=== PATIENT | female | born 2000 | race Caucasian/White ===

== ENCOUNTER 2023-01-20 08:35 | Inpatient (IN) | payer OTHER, SELFPAY ==
[2023-01-20] VITALS (57 sets, daily range): BP systolic 93–136; BP diastolic 52–85; PULSE 65–90; RESP 16–18; TEMP 36.3–37.8; O2SAT 78–100; BMI 26.8
--- NOTE | 2023-01-20 08:45 | PCM.HP.OB ---
HPI - General General Date of Admission: 01/20/23 HPI Narrative ELIER WU, is a 22 F @ 40.1 weeks who presents c/o ctx. 4cm on admission was 1cm in office last week. PFSH PFSH Home Medications 1 tab PO.IVFORM DAILY Check with primary doctor 01/20/23 [History Last Taken 01/19/23 09:00] aspirin 81 mg tablet 81 mg PO DAILY Check with primary doctor 01/20/23 [History Last Taken 01/19/23 09:00] Allergy/AdvReac Type Severity Reaction Status Date / Time No Known Allergies Allergy Verified 01/20/23 08:29 Vital Signs Vital Signs Vital Signs: 01/20/23 08:21 01/20/23 08:21 01/20/23 08:22 Temperature Temperature Source Temporal Pulse Rate 71 Blood Pressure 127/73 H BP Systolic 127 BP Diastolic 73 01/20/23 08:22 Temperature 98.7 F Temperature Source Pulse Rate Blood Pressure BP Systolic BP Diastolic Weight Weight: 75.296 kg Body Mass Index (BMI) 26.8 Physical Exam Narrative AROM performed- clear fluid Labs Labs Labs: No Data to Display Assessment & Plan (1) 40 weeks gestation of : (2) Post term over 40 weeks: (3) Active labor at term: PLAN: Plan Admit to L&D [facility] FHR/TOCO Epidural if requested for pain Monitor VS Anticipate arom performed- augment with pitocin if indicated
[2023-01-20] MEDS: Lactated Ringers 1,000 ML 50 ML IV (08:50)
[2023-01-20 09:06] LABS: Absolute Lymphocyte Count 1.15 X10^3/uL (0.83-4.51); Absolute Neutrophil Count 10.7 X10^3/uL (2.0-7.7); Basophil# 0.02 X10^3/uL; Basophil% 0.2 % (0-1); Eosinophil# 0.01 X10^3/uL; Eosinophils% 0.1 % (0-5); Hematocrit 41.9 % (37-47); Hemoglobin 14.5 g/dL (12.0-15.0); Lymphocyte # 1.15 X10^3/ul (0.83-4.51); Lymphocyte % 9.3 % (19-41); Mean Corp Hgb Conc 34.6 g/dL (32-36); Mean Corpuscular Hgb 31.3 pg (27.0-32.0); Mean Corpuscular Volume 90.5 fL (81-99); Mean Platelet Vol. 9.4 fl (6.2-12.0); Monocyte# 0.47 X10^3/uL; Monocyte% 3.8 % (0-10); NRBC Flagged by Analyzer 0 % (0-5); Neutrophil # 10.71 X10^3/uL (2.7-7.7); Platelet Count 180 K/mm3 (150-450); RBC Distribution Width CV 12.9 % (11.6-14.6); RBC Distribution Width SD 42.1 fl (35.1-43.9); Red Blood Count 4.63 M/mm3 (4.2-5.4); White Blood Count 12.4 K/mm3 (4.4-11.0)
[2023-01-20] MEDS: LACTATED RINGERS 500 ML 999 ML IV ×2 (09:07→14:13)
[2023-01-20 09:37] LABS: Syphilis Antibodies Non-reactive
[2023-01-20] MEDS: fentaNYL-bupivacaine (epidural) 100 ML BAG EPIDURAL ×3 (09:52→19:21)
[2023-01-20] MEDS: Lactated Ringers 1,000 ML 200 ML IV ×2 (14:13→20:25)
[2023-01-20] MEDS: Ondansetron 4 MG/2 ML Vial IV (20:40)
--- NOTE | 2023-01-20 20:59 | PCM.PROGNOTE ---
Subjective Subjective Patient seen at bedside vaginal exam performed she was still 9.5cm more cervix on the patient's right side. Discussed with the patient that there is another obstetrical emergency happening on the unit right now that I need to attend to. Patient and fetus are stable at this time and we will proceed with a primary section for arrest of dilation as soon as I am done performing the other section. Patient and her significant other are comfortable with this plan. heart rate is category 1 reactive at this time. Objective Data Objective Data Vital Signs: Vital Signs Temp Pulse Resp BP Pulse Ox O2 Del Method 99 F 86 18 122/69 H 100 Room Air 01/20/23 20:00 01/20/23 20:01 01/20/23 20:00 01/20/23 20:00 01/20/23 20:01 01/20/23 20:00 Oxygen Delivery Method Room Air Weight: 75.296 kg Body Mass Index (BMI) 26.8 Intake & Output: Intake and Output for Last 24 Hours 01/18/23 01/19/23 01/20/23 23:59 23:59 23:59 Intake Total 2915.83 / 2915.83 Output Total 900 / 900 Balance / Lab / Micro Data Result Diagrams: 01/20/23 08:50 Labs: Laboratory Results - last 24 hr 01/20/23 08:50: WBC 12.4 H, RBC 4.63, Hgb 14.5, Hct 41.9, MCV 90.5, MCH 31.3, MCHC 34.6, RDW Std Deviation 42.1, RDW Coeff of Herminio 12.9, Plt Count 180, MPV 9.4, Immature Gran % (Auto) 0.600, Neut % (Auto) 86.0 H, Lymph % (Auto) 9.3 L, Bland % (Auto) 3.8, Eos % (Auto) 0.1, Baso % (Auto) 0.2, Absolute Neuts (auto) 10.7 H, Absolute Lymphs (auto) 1.15, Nucleated RBC % 0 01/20/23 08:50: Blood Type A POSITIVE, Antibody Screen NEGATIVE 01/20/23 08:50: Syphilis Total Ab Non-reactive
[2023-01-20] MEDS: Sodium Citrate/Citric Acid 30 ML UDC PO (22:01)
[2023-01-20] MEDS: Acetaminophen 500 MG Tablet 1000 MG PO (22:01)
--- NOTE | 2023-01-20 22:06 | EX.PCM.OBRPT ---
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 She was then placed in the supine position. She was prepped and draped in the normal sterile fashion. Epidural Anesthesia was found to be adequate. At this time a Pfannenstiel skin incision was made with a knife was carried down to the underlying layer of the fascia. The fascial incision was then extended laterally using gentle opposing traction. Attention was then turned to the superior aspect of the fascial edge was grasped with 2 straight Sheridan clamps tented up and the rectus muscle dissected off bluntly. Attention was then turned to the inferior aspect where again Sheridan clamps were placed in the rectus muscles were tented up and the fascia was dissected off bluntly. Rectus muscles were then in the midline bluntly and peritoneum was entered bluntly. Gentle opposing traction was placed. At this time the vesicouterine peritoneum was identified. Scalpel was used to make a uterine incision in a low transverse fashion. The uterus was then entered bluntly gentle opposing traction was placed to extend this incision. amniotic fluid with meconium noted. 's head was brought to the uterine incision was delivered atraumatically. Cord was clamped and cut infant was handed to the waiting nursery team. The Placenta was removed from the uterus. The uterus was then removed from the abdominal cavity. The uterus was cleared of all clots and debris using a lap. At this time the uterine incision was reapproximated using #1 Vicryl in a running locked fashion. bleeding from extension on left angle- multiple sutures placed- and Hemostasis was appreciated. Posterior cul-de-sac was then cleared of all clots and debris. Uterus was placed back in the abdominal cavity. Gutters were cleared of all clots and debris. Uterine incision was reevaluated and noted to be of excellent hemostasis. tubes and ovaries appeared normal. At this time the peritoneum was grasped with Kellys reapproximated using #2 Vicryl suture in a running fashion. Fascia was then reapproximated using #1 Vicryl in a running fashion. Subcu layer was reapproximated with #2 0 plain gut suture in an interrupted fashion. Subcu layer was closed using 4-0 vicryl in a subcu fashion. Dry sterile dressing was applied. Instrument lap needle count correct ?2. Anticipated normal postoperative course. Presentation: Positive for Vertex Amniotic Membrane Rupture Type: Artificial Amniotic Fluid Description: Clear Placental Delivery Description: Expressed Placenta Disposition: [facility] Cord Vessel Description: 3 Vessels Cord Entanglement: None Infant A Gender: Female (1 minute): 8 (5 minute): 9 Delayed Cord Clamping: No Complications Risks of Surgery Discussed w/Patient: Anesthesia Risks, Infection and Injury to surrounding structure(s) including bowel and bladder
[2023-01-20] MEDS: Cefazolin 2 GM in 0.9% Normal Saline 100 ML IV (22:18)
[2023-01-20] MEDS: Oxytocin 15 Units/NS 250ml 15 UNITS/250 ML IV.SOLN 83 UNITS IV (23:30)
[2023-01-21] VITALS (17 sets, daily range): BP systolic 95–120; BP diastolic 32–88; PULSE 18–89; RESP 12–18; TEMP 36.8–37; O2SAT 95–100
[2023-01-21] MEDS: Ketorolac 30 MG/ML Syringe IV ×4 (00:23→18:31)
[2023-01-21] MEDS: 0.9% Saline Lock 10 ML Syringe IV ×4 (00:24→18:31)
[2023-01-21] MEDS: Lactated Ringers 1,000 ML 100 ML IV (02:52)
[2023-01-21] MEDS: Acetaminophen 500 MG Tablet 1000 MG PO ×4 (03:40→22:27)
--- NOTE | 2023-01-21 04:40 | NURSING ---
Epidural cath removed by this RN. Blue tip intact.
[2023-01-21 04:42] LABS: Hematocrit 34.3 % (37-47); Hemoglobin 11.6 g/dL (12.0-15.0); Mean Corp Hgb Conc 33.8 g/dL (32-36); Mean Corpuscular Volume 91.7 fL (81-99); Mean Platelet Vol. 9.2 fl (6.2-12.0); Platelet Count 154 K/mm3 (150-450); RBC Distribution Width CV 12.9 % (11.6-14.6); RBC Distribution Width SD 42.6 fl (35.1-43.9); Red Blood Count 3.74 M/mm3 (4.2-5.4)
--- NOTE | 2023-01-21 05:05 | NURSING ---
report received from kaycee FREGOSO. this RN assumed care of pt at 0500
--- NOTE | 2023-01-21 08:29 | PCM.PN.OB ---
Subjective Subjective Patient seen at bedside. Feeling well. Pain is controlled. Patient has not ambulated since surgery. Passing flatus. Denies any CP, SOB or dizziness. with support. Objective Data Objective Data Vital Signs: Vital Signs Temp Pulse Resp BP Pulse Ox O2 Del Method 98.2 F 83 17 107/47 L 100 Room Air 01/21/23 05:48 01/21/23 05:48 01/21/23 05:52 01/21/23 05:48 01/21/23 05:52 01/21/23 05:52 Oxygen Delivery Method Room Air Weight: 166 lb Body Mass Index (BMI) 26.8 Intake & Output: Intake and Output for Last 24 Hours 01/19/23 01/20/23 01/21/23 23:59 23:59 23:59 Intake Total 3289.16 / 3289.16 615 / 615 Output Total 1700 / 1700 900 / 900 Balance 1589.16 / 1589.16 -285 / -285 Lab / Micro Data Result Diagrams: 01/21/23 04:30 Labs: Laboratory Results - last 24 hr 01/20/23 08:50: WBC 12.4 H, RBC 4.63, Hgb 14.5, Hct 41.9, MCV 90.5, MCH 31.3, MCHC 34.6, RDW Std Deviation 42.1, RDW Coeff of Herminio 12.9, Plt Count 180, MPV 9.4, Immature Gran % (Auto) 0.600, Neut % (Auto) 86.0 H, Lymph % (Auto) 9.3 L, [place] % (Auto) 3.8, Eos % (Auto) 0.1, Baso % (Auto) 0.2, Absolute Neuts (auto) 10.7 H, Absolute Lymphs (auto) 1.15, Nucleated RBC % 0 01/20/23 08:50: Blood Type A POSITIVE, Antibody Screen NEGATIVE 01/20/23 08:50: Syphilis Total Ab Non-reactive 01/21/23 04:30: WBC 14.0 H, RBC 3.74 L, Hgb 11.6 L, Hct 34.3 L, MCV 91.7, MCH 31.0, MCHC 33.8, RDW Std Deviation 42.6, RDW Coeff of Herminio 12.9, Plt Count 154, MPV 9.2 ROS Eyes Eyes: Denies blurry vision, change in vision or spots in vision ENT HEENT: Denies dizziness or headache(s) Cardiovascular Cardiovascular: Denies abdominal pain, chest pain or dyspnea Respiratory/Chest Respiratory/Chest: Denies cough, dyspnea, shortness of breath at rest or shortness of breath with exertion Gastrointestinal Gastrointestinal: Denies abdominal pain, diarrhea or vomiting Genitourinary Genitourinary: Denies change in urinary stream, difficulty urinating or dysuria Musculoskeletal Musculoskeletal: Reports none Integumentary Integumentary: Denies rash Neurologic Neurologic: Denies dizziness, headache(s), memory loss or weakness Assessment & Plan (1) Status post primary low transverse section: (2) Care and examination of lactating mother: PLAN: Plan POD 1 Primary C/S - failure to descend Pain control support Increase ambulation D/C nayak catheter Anticipate D/C tomorrow
[2023-01-21] MEDS: Senna/Docusate Sodium 1 Tablet PO (10:13)
[2023-01-22] MEDS: Ibuprofen 600 MG Tablet PO ×3 (01:28→13:27)
[2023-01-22 01:30] VITALS: BP 111/63; PULSE 84; RESP 16; TEMP 36.1; O2SAT 95
[2023-01-22] MEDS: Acetaminophen 500 MG Tablet 1000 MG PO ×2 (03:55→10:28)
--- NOTE | 2023-01-22 06:55 | PCM.DC.SUM ---
Providers Date of Admission: 01/20/23 Reason For Visit: C SECTION Diagnosis Discharge Diagnosis (1) Status post primary low transverse section: Status: Acute Code(s): Z98.891 - History of uterine scar from previous surgery (2) Care and examination of lactating mother: Status: Acute Code(s): Z39.1 - Encounter for care and examination of lactating mother Plan POD 2 Primary C/S - failure to descend Pain control support Increase ambulation D/C home with follow up in office Medications at Discharge Home Medications 1 tab PO.IVFORM DAILY Check with primary doctor 01/20/23 acetaminophen 500 mg tablet 1,000 mg PO Q6H #0 tabs 01/22/23 ibuprofen 600 mg tablet 600 mg PO Q6H #0 tabs 01/22/23 sennosides 8.6 mg-docusate sodium 50 mg tablet (Stool Softener-Stimulant Laxative) 1 - 2 tab PO DAILY #0 tabs 01/22/23 Hospital Course Operations section Summary of Care Provided Hospital Course: Patient had primary section. Hosptial course was uneventful. Physical Exam Narrative Dressing is dry and intact Const alert and no apparent distress General Appearance: cooperative and comfortable Exam Limitations: no limitations HEENT normocephalic Eyes General Eye: normal appearance of both eyes Neck full ROM General: normal visual inspection Chest Chest: symmetrical chest wall rise Resp normal respiratory effort and normal air movement Effort and Inspection: symmetric chest movement Auscultation: clear to auscultation bilaterally Cardio regular rate and regular rhythm GI normal to inspection, nondistended, normoactive bowel sounds Back/Spine normal ROM Extremity full ROM and no calf tenderness General Extremity: normal exam except as noted Skin no rashes or lesions noted Neuro CN's II-XII intact bilaterally Psych mental status grossly normal Weight / BMI Weight Weight: 166 lb Body Mass Index (BMI) 26.8 ABG / Lab / Microbiology Data Result Diagrams: 01/21/23 04:30 D/C Instructions Discharge Diet: No restrictions Discharge Activity: May Drive (2 weeks) and May Shower May resume sexual activity in: 6-8 weeks Weight Bearing Status: Weight bearing as tolerated Call your doctor if your incision/area has: Continuous Slow Oozing, Sudden Increased Bleeding, Increased Pain/ Swelling, Increased Redness, Foul Smelling Discharge and Swelling at the incision site Call your doctor if you observe: Fever of 101 or Higher, Numbness or Tingling, Using more than 1 pad per hour, Shortness of breath, Dizziness, Swelling in the ankles, Chest pain, Calf discomfort and Uncontrolled pain Suture Line Care: Avoid Pulling/Pushing Change Dressing in: leave in place till F/U Remove Dressing in: leave until fall off Please Follow Up With: Nanda Taylor CNM When: 1 week for incision check Meaningful Use Info Meaningful Use Diagnoses (Choose all that apply): None applicable Discharge Plan Admission Admit Date/Time: 01/20/23 08:35 Primary Reason for Your Visit: Labor and Delivery Attending Provider: Megan Lemus Discharge Orders/Prescriptions Prescriptions: New acetaminophen 500 mg Tablet 1,000 mg PO Q6H Qty: 0 0RF sennosides-docusate sodium [Stool Softener-Stimulant Laxat] 8.6-50 mg Tablet 1 - 2 tab PO DAILY Qty: 0 0RF ibuprofen 600 mg Tablet 600 mg PO Q6H Qty: 0 0RF Continued 1 tab PO.IVFORM DAILY Discontinued aspirin 81 mg Tablet 81 mg PO DAILY Disposition Disposition (needs filled in before D/C Order can be placed): Home, Self Care
[2023-01-22 08:37] VITALS: BP 105/63; PULSE 69; RESP 18; TEMP 36.8; O2SAT 99
[2023-01-22] MEDS: Senna/Docusate Sodium 1 Tablet PO (10:27)
[2023-01-22 13:00] VITALS: BP 108/66; PULSE 82; RESP 18; TEMP 36.1
== END 2023-01-22 16:10 | disposition home or self-care (01) | DRG 788 ==
LOC: WPOUT 08:40 → WP 08:40
PROVIDERS: Admitting Provider Obstetrics & Gynecology; Referring Provider Obstetrics & Gynecology; Visit Provider Obstetrics & Gynecology
DX: O48.0 Post-term pregnancy (principal); O62.1 Secondary uterine inertia; O77.0 Labor and delivery complicated by meconium in amniotic fluid; Z3A.40 40 weeks gestation of pregnancy; Z37.0 Single live birth; Z79.82 Long term (current) use of aspirin
CPT/HCPCS: 59025; 59050; 85025; 85027; 86780; 86850; 86900; 86901; 94668; 99221; J7120; A4216; G0378; J2405

== ENCOUNTER 2025-01-07 09:28 | Inpatient (IN) | payer BC, SELFPAY ==
[2025-01-07] VITALS (16 sets, daily range): BP systolic 105–119; BP diastolic 43–76; PULSE 67–89; RESP 14–23; TEMP 36–36.7; O2SAT 74–100; BMI 27.0
[2025-01-07] MEDS: Lactated Ringers 1,000 ML 999 ML IV (09:50)
[2025-01-07] MEDS: Acetaminophen 500 MG Tablet 1000 MG PO ×3 (10:02→22:00)
[2025-01-07 10:05] LABS: Absolute Lymphocyte Count 1.19 X10^3/uL (0.83-4.51); Absolute Neutrophil Count 7.8 X10^3/uL (2.0-7.7); Basophil# 0.02 X10^3/uL; Basophil% 0.2 % (0-1); Eosinophil# 0.04 X10^3/uL; Eosinophils% 0.4 % (0-5); Hematocrit 34.7 % (37-47); Hemoglobin 11.6 g/dL (12.0-15.0); Lymphocyte # 1.19 X10^3/ul (0.83-4.51); Lymphocyte % 12.4 % (19-41); Mean Corp Hgb Conc 33.4 g/dL (32-36); Mean Corpuscular Hgb 29.1 pg (27.0-32.0); Mean Corpuscular Volume 87.2 fL (81-99); Mean Platelet Vol. 9.6 fl (6.2-12.0); Monocyte# 0.51 X10^3/uL; Monocyte% 5.3 % (0-10); NRBC Flagged by Analyzer 0 % (0-5); Neutrophil # 7.81 X10^3/uL (2.7-7.7); Neutrophil % 81.4 % (47-70); Platelet Count 178 K/mm3 (150-450); RBC Distribution Width CV 13.4 % (11.6-14.6); RBC Distribution Width SD 42.5 fl (35.1-43.9); Red Blood Count 3.98 M/mm3 (4.2-5.4); White Blood Count 9.6 K/mm3 (4.4-11.0)
[2025-01-07] MEDS: Lactated Ringers 1,000 ML 150 ML IV (10:52)
[2025-01-07 10:58] LABS: Syphilis Antibodies Nonreactive (Nonreactive)
[2025-01-07] MEDS: Sodium Citrate/Citric Acid 30 ML UDC PO (12:09)
[2025-01-07] MEDS: Cefazolin 2 GM in Syringe IV (12:15)
--- NOTE | 2025-01-07 13:06 | PCM.HP.OB ---
HPI - General General Date of Admission: 01/07/25 Date of Service: 01/07/25 Chief Complaint: Repeat HPI Narrative ELIER WU, is a 24 F who presents repeat at term Maternal Data Information Final COOKIE: 01/14/25 Gestational age: 39 PFSH PFSH Medical History (Updated 01/07/25 @ 22:[address] Pao Lake MD) Care and examination of lactating mother Home Medications ?Medication ?Instructions ?Recorded ?Last Taken ?Type 1 tab PO.IVFORM DAILY Check with 01/20/23 01/05/25 09:00 History primary doctor 1 tab Allergy/AdvReac Type Severity Reaction Status Date / Time No Known Allergies Allergy Verified 01/07/25 09:31 Surgical History (Updated 01/07/25 @ 22:[address] Pao Lake MD) Previous section Status post primary low transverse section History of surgery Social History Smoking Status: Never smoker History 2 Elective abortions Hx Para 1 Spontaneous abortions Hx # Term Pregnancies Ectopic pregnancies Hx # Pregnancies Multiple births # of living children ROS Constitutional Constitutional: Denies fatigue, fever(s) or malaise Eyes Eyes: Denies change in vision ENT HEENT: Denies dizziness or headache(s) Cardiovascular Cardiovascular: Denies chest pain, dyspnea or lightheadedness Respiratory/Chest Respiratory/Chest: Denies cough or dyspnea Gastrointestinal Gastrointestinal: Denies change in bowel habits Genitourinary Genitourinary: Denies burning urination or genital lesions Integumentary Integumentary: Denies rash Neurologic Neurologic: Denies confusion, dizziness, headache(s), numbness or weakness Vital Signs Vital Signs Vital Signs: 01/07/25 10:12 Temperature 97.1 F L Temperature Source Temporal Pulse Rate 74 Respiratory Rate 18 Blood Pressure 119/76 Blood Pressure Mean 90 Blood Pressure Source Monitor Blood Pressure Position Semi-Fowlers Blood Pressure Location Left Arm Pulse Ox 100 Oxygen Delivery Method Room Air Weight Weight: 75.9 kg Body Mass Index (BMI) 27.0 Physical Exam Const alert and no apparent distress General Appearance: cooperative HEENT normocephalic Resp normal respiratory effort Cardio regular rate GI soft to palpation GI Narrative: gravid, nontender, appropriate for gestational age Extremity no calf tenderness General Extremity: edema Skin no wounds Rashes: No rashes noted Psych activity/motor behavior normal Labs Labs Labs: Blood Type A POSITIVE Antibody Screen NEGATIVE Hct 34.7 % (37-47) L Hgb 11.6 g/dL (12.0-15.0) L Syphilis Total Ab Nonreactive (Nonreactive) Rhogam given: No Assessment & Plan (1) 39 weeks gestation of : (2) Previous section: PLAN: Plan Scheduled repeat section
--- NOTE | 2025-01-07 13:07 | OP.PCM_ITS ---
Assessment & Plan (1) S/P : Maternal Data Information Final COOKIE: 01/14/25 Gestational age: 39 Operative Report (OB) Details Procedure Type: low transverse Date of Procedure: 01/07/25 Procedure Start Time: 12:36 Procedure Stop Time: 13:18 Time of Delivery: 12:41 Pre-Operative Diagnosis: Repeat Elective Post-Operative Diagnosis: Same as Pre-operative diagnosis Classification: Scheduled Type of Anesthesia: Spinal Antibiotic Given: Ancef 2 grams IV x1 Drain: Yañez to straight drain Estimated Blood Loss: 600 cc Fluids Replaced: 1000 cc Findings Description of surgery: Patient taken to the OR where spinal anesthesia and Yañez were placed. She was prepped and draped in the normal sterile fashion. A Pfannenstiel incision was made and carried down to the underlying fascia. The previous scar was excised. The fascia was incised in the midline and extended laterally. The fascia was dissected from the muscle. The muscles divided in the midline. The peritoneum was entered bluntly and extended manually. A bladder blade was placed. A bladder flap was created. A low transverse incision was made and extended bluntly. The head was elevated to the incision. A kiwi was used to assist in delivery of the head. The shoulders delivered easily. The infant cried upon delivery. The cord was cut and clamped. The placenta was delivered with socorro traction. The uterus was exteriorized and cleared of all clot and debris. The incision was repaired with 1-0 Vicryl x 2. The uterus was returned the abdomen, The gutter cleared of all clots. The peritoneum was closed with 2-0 Monocryl. The fascia was closed with 1-0 Vicryl. The subcutaneous tissue was reapproximated with 2-0 Monocryl The skin was closed with 4-0. I performed the major parts of the procedure with the RFNA assisting with retraction and closing the skin. The sponge lap and needle count was correct x 2 Surgical findings: Normal uterus and tubes Presentation: Vertex Amniotic Membrane Rupture Type: Artificial Amniotic Fluid Description: Clear Placental Delivery Description: Expressed Placenta Disposition: [facility] Specimen collected: No Cord Vessel Description: 3 Vessels Cord Entanglement: None A gender: Male (1 minute): 9 (5 minute): 9 Delayed Cord Clamping: Yes Cash Shortage Investigator technical services assistant: Yes Gm: Alvarez Salter Tasks completed by paraprofessional education assistant: Opening & closing and Retracting Additional assistant chief of police?: No Complications Complications: No
[2025-01-07] MEDS: Oxytocin 15 Units/NS 250ml 15 UNITS/250 ML IV.SOLN 83 UNITS IV (13:35)
[2025-01-07] MEDS: Ketorolac 30 MG/ML Syringe IV ×2 (14:14→19:56)
[2025-01-07] MEDS: 0.9% Saline Lock 10 ML Syringe IV ×2 (16:34→19:56)
[2025-01-08 00:05] VITALS: BP 106/65; PULSE 73; RESP 14; TEMP 36.4; O2SAT 98
[2025-01-08] MEDS: Ketorolac 30 MG/ML Syringe IV ×2 (02:29→09:27)
[2025-01-08] MEDS: 0.9% Saline Lock 10 ML Syringe IV ×2 (02:29→09:27)
[2025-01-08 02:32] VITALS: PULSE 81; RESP 14; O2SAT 98
[2025-01-08] MEDS: Acetaminophen 500 MG Tablet 1000 MG PO ×2 (03:46→10:22)
[2025-01-08 03:47] VITALS: BP 106/67; PULSE 68; RESP 14; TEMP 36.4
[2025-01-08 07:15] LABS: Hematocrit 30.7 % (37-47); Hemoglobin 10.1 g/dL (12.0-15.0); Mean Corp Hgb Conc 32.9 g/dL (32-36); Mean Corpuscular Hgb 28.8 pg (27.0-32.0); Mean Corpuscular Volume 87.5 fL (81-99); Mean Platelet Vol. 10.1 fl (6.2-12.0); Platelet Count 155 K/mm3 (150-450); RBC Distribution Width SD 43.7 fl (35.1-43.9); Red Blood Count 3.51 M/mm3 (4.2-5.4); White Blood Count 7.4 K/mm3 (4.4-11.0)
--- NOTE | 2025-01-08 09:04 | PCM.PN.OB ---
Subjective Subjective Doing well. Ambulating and voiding without difficulty. Mild lochia. Breast feeding. Objective Data Objective Data Vital Signs: Vital Signs Temp Pulse Resp BP Pulse Ox O2 Del Method 97.6 F L 68 14 106/67 98 Room Air 01/08/25 03:47 01/08/25 03:47 01/08/25 03:47 01/08/25 03:47 01/08/25 02:32 01/08/25 03:47 Oxygen Delivery Method Room Air Weight: 75.9 kg Body Mass Index (BMI) 27.0 Intake & Output: Intake and Output for Last 24 Hours 01/06/25 01/07/25 01/08/25 23:59 23:59 23:59 Intake Total 3307.62 / 3307.62 900 / 900 Output Total 2550 / 2550 2500 / 2500 Balance 757.62 / 757.62 -1600 / -1600 Lab / Micro Data 01/08/25 03:50 Labs: Laboratory Results - last 24 hr 01/07/25 09:50: WBC 9.6, RBC 3.98 L, Hgb 11.6 L, Hct 34.7 L, MCV 87.2, MCH 29.1, MCHC 33.4, RDW Std Deviation 42.5, RDW Coeff of Herminio 13.4, Plt Count 178, MPV 9.6, Immature Gran % (Auto) 0.300, Neut % (Auto) 81.4 H, Lymph % (Auto) 12.4 L, [place] % (Auto) 5.3, Eos % (Auto) 0.4, Baso % (Auto) 0.2, Absolute Neuts (auto) 7.8 H, Absolute Lymphs (auto) 1.19, Nucleated RBC % 0, Syphilis Total Ab Nonreactive, Blood Type A POSITIVE, Antibody Screen NEGATIVE 01/08/25 03:50: WBC 7.4, RBC 3.51 L, Hgb 10.1 L, Hct 30.7 L, MCV 87.5, MCH 28.8, MCHC 32.9, RDW Std Deviation 43.7, RDW Coeff of Herminio 14.0, Plt Count 155, MPV 10.1 ROS Constitutional Constitutional: Denies headache(s) Cardiovascular Cardiovascular: Denies chest pain or dyspnea Gastrointestinal Gastrointestinal: Denies nausea or vomiting Genitourinary Genitourinary: Denies dysuria Physical Exam Const alert, oriented x3 and no apparent distress General Appearance: cooperative and comfortable Eyes PERRL and EOMs intact bilaterally Resp normal respiratory effort GI soft to palpation and non-tender GI Narrative: soft, moderate distention, fundus firm, appropriately tender. Abdominal bandage clean dry and intact Uterus Palpation: uterus fundus firm ( below umbilicus) Extremity normal to inspection and full ROM Neuro oriented x3 and CN's II-XII intact bilaterally Psych mental status grossly normal Assessment & Plan (1) S/P : PLAN: Plan possible discharge home
[2025-01-08] MEDS: Senna/Docusate Sodium 1 Tablet PO (09:27)
[2025-01-08 09:32] VITALS: BP 108/75; PULSE 80; RESP 16; TEMP 36.3; O2SAT 99
[2025-01-08 13:19] VITALS: BP 108/62; PULSE 88; RESP 16; TEMP 36.5; O2SAT 99
--- NOTE | 2025-01-08 13:24 | PCM.DC.SUM ---
Providers Date of Admission: 01/07/25 Date of Discharge: 01/08/25 Primary Care Physician: No Primary Care Phys Reason For Visit: REPEAT C SECTION Diagnosis Discharge Diagnosis (1) S/P : Status: Acute Code(s): Z98.891 - History of uterine scar from previous surgery Plan possible discharge home Medications at Discharge Home Medications 1 tab PO.IVFORM DAILY Check with primary doctor 01/20/23 Hospital Course Operations section Procedures None Summary of Care Provided Minutes Spent on Discharge: 20 Hospital Course: repeat . uncomplicated Physical Exam Const alert General Appearance: cooperative GI GI Narrative: soft, moderate distention, fundus firm, appropriately tender. Abdominal bandage clean dry and intact Weight / BMI Weight Weight: 75.9 kg Body Mass Index (BMI) 27.0 ABG / Lab / Microbiology Data 01/08/25 03:50 Laboratory: Laboratory Results - last 24 hr 01/08/25 03:50: WBC 7.4 01/08/25 03:50: WBC Cancelled, Corrected WBC Cancelled, RBC 3.51 L 01/08/25 03:50: RBC Cancelled, Hgb 10.1 L 01/08/25 03:50: Hgb Cancelled, Hct 30.7 L 01/08/25 03:50: Hct Cancelled, MCV 87.5 01/08/25 03:50: MCV Cancelled, MCH 28.8 01/08/25 03:50: MCH Cancelled, MCHC 32.9 01/08/25 03:50: MCHC Cancelled, RDW Std Deviation 43.7 01/08/25 03:50: RDW Std Deviation Cancelled, RDW Coeff of Herminio 14.0 01/08/25 03:50: RDW Coeff of Herminio Cancelled, Plt Count 155 01/08/25 03:50: Plt Count Cancelled, MPV 10.1 01/08/25 03:50: MPV Cancelled, Diff Path Review Cancelled D/C Instructions Discharge Diet: No restrictions May resume sexual activity in: 4-6 weeks Lifting Restrictions: 20 pounds Additional Activity Instructions: Nothing in the vagina for 4-6 weeks. You may return to work/school in 6 weeks. Call your doctor if your incision/area has: Continuous Slow Oozing, Sudden Increased Bleeding, Increased Pain/ Swelling, Increased Redness and Foul Smelling Discharge Call your doctor if you observe: Fever of 101 or Higher and Using more than 1 pad per hour (for 2 hours) Suture Line Care: Avoid Pulling/Pushing and Avoid Pinching/Bending Cleanse incision/area with: Keep Dressing Clean & Dry DC O2, CPAP, BIPAP Needs Home O2 Discharge instructions: No Please Follow Up With: Lo Cho MD When: Call to make an appointment for an incision check in 1-2 [phone]. You will need a post check in 6 weeks. Meaningful Use Info Meaningful Use Meaningful Use Diagnoses (Choose all that apply): None applicable Ischemic Stroke Statin Dosing Therapy Reference: STATIN DOSE THERAPY REFERENCE: * Patients > 75 years receive moderate or high dose statin therapy. * Patients 75 years or YOUNGER should receive HIGH intensity statin dose unless contraindicated. You will be required to document reason for non-treatment if statin daily dose does not meet guidelines. HIGH DOSE STATIN THERAPY DAILY Atorvastatin > than or = to 40 mg Rosuvastatin > than or = to 20 mg Amlodipine + Atorvastatin > than or = to 2.5/40 mg Ezetimibe + Simvastatin 10/80 mg Simvastatin 80mg Discharge Plan Admission Admit Date/Time: 01/07/25 09:28 Primary Reason for Your Visit: delivery Attending Provider: Pao Lake Primary Care Provider: Care Physician,Addie Primary Discharge Orders/Prescriptions Prescriptions: Continued 1 tab PO.IVFORM DAILY Referrals / Follow Up: Care Physician,No Primary [Primary Care Provider] - Disposition Disposition (needs filled in before D/C Order can be placed): Home, Self Care
[2025-01-08] MEDS: Ibuprofen 600 MG Tablet PO (14:12)
== END 2025-01-08 15:00 | disposition home or self-care (01) | DRG 788 ==
PROVIDERS: Admitting Provider Obstetrics & Gynecology; Referring Provider Obstetrics & Gynecology; Visit Provider Obstetrics & Gynecology
PROC: 10D00Z1 Extraction of Products of Conception, Low, Open Approach (ICD-10-PCS; CPT 59514; principal; 2025-01-07 11:45)
DX: O34.211 Maternal care for low transverse scar from previous cesarean delivery (principal); Z37.0 Single live birth; Z3A.39 39 weeks gestation of pregnancy
CPT/HCPCS: 59025; 59050; 85025; 86780; 86850; 86900; 86901; 99221; A4216; G0378; J2405